=== PATIENT | female | born 1980 | race African-American/Black ===

== ENCOUNTER 2021-02-07 00:24 | Emergency (ER) | payer OTHER ==
[2021-02-07 01:05] VITALS: BP 141/87; PULSE 84; TEMP 98.3; BMI 36.6
[2021-02-07] MEDS ORDERED: LIDOCAINE VISCOUS 2% ORAL/TOP 15 ML UNIT-DOSE CUP MM ONE (01:38)
[2021-02-07] MEDS ORDERED: AMOX TR/POT CLAV 875MG/125MG TABLETS (FP) PO ONE (01:38)
[2021-02-07] MEDS ORDERED: AMOX TR/POT CLAV 875MG/125MG TABLETS (FP) ONE (01:49)
[2021-02-07] MEDS ORDERED: LIDOCAINE VISCOUS 2% ORAL/TOP 15 ML UNIT-DOSE CUP ONE (01:49)
== END 2021-02-07 02:07 | disposition home or self-care (01) ==
LOC: JER 00:24
DX: K02.9 Dental caries, unspecified (principal); K08.89 Other specified disorders of teeth and supporting structures
CPT/HCPCS: 99284-25

== ENCOUNTER 2021-03-14 17:32 | Emergency (ER) | payer OTHER ==
[2021-03-14 17:53] VITALS: BP 133/90; PULSE 109; TEMP 98; BMI 36.6
== END 2021-03-14 20:49 | disposition home or self-care (01) ==
LOC: JER 17:32
DX: O9A.213 Injury, poisoning and certain other consequences of external causes complicating pregnancy, third trimester (principal); S39.91XA Unspecified injury of abdomen, initial encounter; W50.0XXA Accidental hit or strike by another person, initial encounter; Z3A.14 14 weeks gestation of pregnancy
CPT/HCPCS: 76815; 99284-25

== ENCOUNTER 2021-08-07 16:02 | Emergency (ER) | payer OTHER ==
[2021-08-07 16:20] VITALS: BMI 40.9
[2021-08-07] MEDS ORDERED: BETAMET ACET/BETAMET NA PH 30 MG/5 ML VIAL IM ONE (19:00)
[2021-08-07 19:01] LABS: BASO % 0.6 % (0-2.0); EOS % 3.7 % (0-4.5); HEMATOCRIT 33.6 % (32.4-45.2); HEMOGLOBIN 10.5 GM/dL (10.7-15.3); LYMPH % 26.1 % (8-40); MCH 27.2 pg (25.7-33.7); MCHC 31.4 g/dl (32.0-36.0); MEAN CELL VOLUME 86.6 fl (80-96); MEAN PLT VOLUME 8.8 fl (7.5-11.1); MONO % 6.9 % (3.8-10.2); NEUT % 62.7 % (42.8-82.8); PLATELET COUNT 299 10^3/uL (134-434); RBC 3.88 M/mm3 (3.60-5.2); RDW 17.2 % (11.6-15.6); WHITE BLOOD COUNT 11.4 K/mm3 (4.0-10.0)
[2021-08-07 19:03] LABS: PH,URINE 6.5 (5.0-8.0); URINE APPEARANCE CLEAR; URINE BILIRUBIN NEGATIVE (NEGATIVE); URINE COLOR YELLOW; URINE GLUCOSE (UA) NEGATIVE (NEGATIVE); URINE KETONE NEGATIVE (NEGATIVE); URINE LEUK ESTERASE NEGATIVE (NEGATIVE); URINE NITRITE NEGATIVE (NEGATIVE); URINE PROTEIN NEGATIVE (NEGATIVE); URINE UROBILINOGEN 0.2 mg/dL (0.2-1.0)
[2021-08-07 19:12] LABS: ACTIVATED PTT 29.2 SECONDS (25.2-36.5); INR 0.92 (0.83-1.09); PROTHROMBIN TIME (PATIENT) 10.6 SEC (9.7-13.0)
[2021-08-07 19:13] LABS: ALBUMIN 2.4 g/dl (3.4-5.0); BLOOD UREA NITROGEN 7.2 mg/dL (7-18)
[2021-08-07 19:14] LABS: URIC ACID 3.8 mg/dL (2.6-7.2)
[2021-08-07 19:15] LABS: CREATININE 0.6 mg/dL (0.55-1.3)
[2021-08-07 19:17] LABS: BILIRUBIN,TOTAL 0.2 mg/dL (0.2-1); TOT PROT 6.6 g/dl (6.4-8.2)
[2021-08-07] MEDS ORDERED: BETAMET ACET/BETAMET NA PH 30 MG/5 ML VIAL ONE (19:35)
[2021-08-07 20:57] VITALS: BP 128/76; PULSE 86; TEMP 98.1
== END 2021-08-07 20:33 | disposition home or self-care (01) ==
LOC: JER 16:02
PROC: 3E023GC Introduction of Other Therapeutic Substance into Muscle, Percutaneous Approach (ICD-10-PCS; principal; 2021-08-07)
DX: O16.3 Unspecified maternal hypertension, third trimester (principal); Z3A.36 36 weeks gestation of pregnancy
CPT/HCPCS: 36415; 76819-TC; 80053; 81003; 82977; 83010; 83615; 83690; 84550; 85025; 85045; 85384; 85610; 85730; 86850; 86900; 86901; 93005; 93010; 99285-25

== ENCOUNTER 2021-08-13 00:18 | Emergency (ER) | payer OTHER ==
[2021-08-13 00:43] VITALS: BMI 40.9
[2021-08-13] MEDS ORDERED: MAG HYDROX/AL HYDROX/SIMETH 30 ML UNIT-DOSE CUP PO ONE (01:45)
[2021-08-13 01:55] LABS: BASO % 0.4 % (0-2.0); EOS % 2.7 % (0-4.5); HEMATOCRIT 34.2 % (32.4-45.2); HEMOGLOBIN 11.1 GM/dL (10.7-15.3); LYMPH % 22.2 % (8-40); MCH 27.8 pg (25.7-33.7); MCHC 32.6 g/dl (32.0-36.0); MEAN CELL VOLUME 85.5 fl (80-96); MEAN PLT VOLUME 8.4 fl (7.5-11.1); MONO % 7.4 % (3.8-10.2); NEUT % 67.3 % (42.8-82.8); PLATELET COUNT 293 10^3/uL (134-434); RDW 16.9 % (11.6-15.6); WHITE BLOOD COUNT 12.7 K/mm3 (4.0-10.0)
[2021-08-13 02:06] LABS: RETICULOCYTES 2.66 % (0.5-1.5)
[2021-08-13 02:11] VITALS: BP 158/91; PULSE 88; TEMP 97.7
[2021-08-13 02:12] LABS: INR 0.92 (0.83-1.09); PROTHROMBIN TIME (PATIENT) 10.6 SEC (9.7-13.0)
[2021-08-13 02:14] LABS: ACTIVATED PTT 26.1 SECONDS (25.2-36.5)
[2021-08-13 02:17] LABS: ALBUMIN 2.5 g/dl (3.4-5.0); BLOOD UREA NITROGEN 8.2 mg/dL (7-18); CALCIUM 9.2 mg/dL (8.5-10.1)
[2021-08-13 02:20] LABS: CREATININE 0.6 mg/dL (0.55-1.3)
[2021-08-13 02:22] LABS: BILIRUBIN,TOTAL 0.6 mg/dL (0.2-1); TOT PROT 6.6 g/dl (6.4-8.2)
[2021-08-13 02:31] LABS: EPI CELLS >36 /uL (0-25.1); HYALINE CASTS 3 /uL (0-3.1); PH,URINE 7.5 (5.0-8.0); URINE APPEARANCE CLOUDY; URINE BACTERIA 1216 /uL (0-1359); URINE BILIRUBIN NEGATIVE (NEGATIVE); URINE COLOR YELLOW; URINE GLUCOSE (UA) NEGATIVE (NEGATIVE); URINE KETONE NEGATIVE (NEGATIVE); URINE LEUK ESTERASE TRACE (NEGATIVE); URINE NITRITE NEGATIVE (NEGATIVE); URINE PROTEIN NEGATIVE (NEGATIVE); URINE RBC 3 /uL (0-23.9); URINE UROBILINOGEN 0.2 mg/dL (0.2-1.0); URINE WBC 30 /uL (0-25.8)
== END 2021-08-13 06:05 | disposition home or self-care (01) ==
LOC: JER 00:18
DX: O26.893 Other specified pregnancy related conditions, third trimester (principal); R06.02 Shortness of breath; R10.11 Right upper quadrant pain; Z3A.37 37 weeks gestation of pregnancy
CPT/HCPCS: 36415; 76815; 80053; 81003; 83010; 83690; 84550; 85025; 85045; 85610; 85730; 87086; 93308; 99284-25; C9803-CS; U0003; U0005

== ENCOUNTER 2021-08-21 06:15 | Inpatient (IN) | payer OTHER ==
[2021-08-21] MEDS: ELECTROLYTE-148 SOLN 1,000 ML IV SCH (06:25)
[2021-08-21 06:54] VITALS: BMI 39.6
[2021-08-21] MEDS ORDERED: CITRIC ACID/SODIUM CITRATE 30 ML UNIT-DOSE CUP PO ONE (06:55)
[2021-08-21] MEDS ORDERED: OXYTOCIN 20 UNITS in 0.9% NS 20 UNIT/1,000 ML INFUS.BAG IV ONE (07:54)
[2021-08-21] MEDS ORDERED: morphine SULFATE/PF 1 MG/2 ML (2cc Syringe - QUVA) ONE (07:55)
[2021-08-21] MEDS ORDERED: ONDANSETRON 4 MG/2 ML VIAL ONE (09:21)
[2021-08-21] MEDS ORDERED: ceFAZolin SODIUM 1 GM VIAL ONE (09:21)
[2021-08-21] MEDS ORDERED: KETOROLAC TROMETHAMINE 30 MG/1 ML VIAL ONE (09:21)
[2021-08-21] MEDS ORDERED: OXYTOCIN 10 UNITS/ML VIAL ONE (09:21)
[2021-08-21 09:33] LABS: CORD HCO3 27.6 mmHg (20-29); CORD PCO2 51.9 mmHg (30-78); CORD pH 7.344 (7.14-7.44)
[2021-08-21] MEDS ORDERED: IBUPROFEN 600 MG TABLET (FP) PO PRN (09:35)
[2021-08-21] MEDS ORDERED: METHYLERGONOVINE MALEATE 0.2 MG/1 ML AMP IM PRN (09:35)
[2021-08-21] MEDS ORDERED: ACETAMINOPHEN 325 MG TABLET (FP) PO PRN (09:35)
[2021-08-21 09:36] LABS: CORD HCO3 28.3 mmHg (20-29); CORD PCO2 59.1 mmHg (30-78); CORD pH 7.298 (7.14-7.44)
[2021-08-21] MEDS ORDERED: morphine SULFATE/PF 1 MG/2 ML (2cc Syringe - QUVA) EP ONE (09:40)
[2021-08-21] MEDS ORDERED: ONDANSETRON 4 MG/2 ML VIAL IVPUSH PRN (09:40)
[2021-08-21] MEDS ORDERED: IBUPROFEN 800 MG/8 ML IJ IVPB ONE (10:06)
[2021-08-21] MEDS: IBUPROFEN 800 MG/8 ML IJ IVPB PRN (10:20)
[2021-08-21] MEDS: INSULIN SLIDING SCALE (NOVOLOG) 1 VIAL SQ SCH ×3 (11:15→22:17)
[2021-08-21] MEDS: OXYTOCIN 20 UNITS in 0.9% NS 20 UNIT/1,000 ML INFUS.BAG IV SCH (17:00)
[2021-08-21] MEDS ORDERED: oxyCODONE HCL 5 MG TABLET PO PRN ×2 (21:35)
[2021-08-22] MEDS: IBUPROFEN 800 MG/8 ML IJ IVPB PRN (04:51)
[2021-08-22 06:40] LABS: BASO % 0.6 % (0-2.0); EOS % 2.6 % (0-4.5); HEMATOCRIT 23.4 % (32.4-45.2); HEMOGLOBIN 7.6 GM/dL (10.7-15.3); LYMPH % 25.6 % (8-40); MCH 28.2 pg (25.7-33.7); MCHC 32.4 g/dl (32.0-36.0); MEAN CELL VOLUME 87.1 fl (80-96); MEAN PLT VOLUME 8.6 fl (7.5-11.1); MONO % 8.2 % (3.8-10.2); PLATELET COUNT 254 10^3/uL (134-434); RBC 2.68 M/mm3 (3.60-5.2); RDW 16.3 % (11.6-15.6); WHITE BLOOD COUNT 12.5 K/mm3 (4.0-10.0)
[2021-08-22] MEDS: INSULIN SLIDING SCALE (NOVOLOG) 1 VIAL SQ SCH ×4 (06:45→22:29)
[2021-08-22] MEDS ORDERED: BISACODYL 10 MG SUPP.RECT RC PRN (09:35)
[2021-08-22] MEDS: ENOXAPARIN NA (PORCINE) 40 MG/0.4 ML DISP.SYRIN SQ SCH (11:40)
[2021-08-22] MEDS: IBUPROFEN 600 MG TABLET (FP) PO PRN ×2 (12:01→22:39)
[2021-08-22] MEDS: ELECTROLYTE-148 SOLN 1,000 ML IV SCH (20:11)
[2021-08-22] MEDS: OXYTOCIN 20 UNITS in 0.9% NS 20 UNIT/1,000 ML INFUS.BAG IV SCH (20:11)
[2021-08-22] MEDS: SIMETHICONE 80 MG TAB.CHEW (FP) PO PRN (22:39)
[2021-08-23] MEDS: IBUPROFEN 600 MG TABLET (FP) PO PRN ×3 (02:10→21:20)
[2021-08-23] MEDS: SIMETHICONE 80 MG TAB.CHEW (FP) PO PRN ×2 (02:10→21:20)
[2021-08-23] MEDS: INSULIN SLIDING SCALE (NOVOLOG) 1 VIAL SQ SCH ×4 (06:12→21:21)
[2021-08-23 06:55] LABS: BASO % 0.5 % (0-2.0); EOS % 3.5 % (0-4.5); HEMATOCRIT 28.4 % (32.4-45.2); HEMOGLOBIN 9.4 GM/dL (10.7-15.3); MCHC 33.2 g/dl (32.0-36.0); MEAN CELL VOLUME 87.4 fl (80-96); MEAN PLT VOLUME 8.2 fl (7.5-11.1); MONO % 7.5 % (3.8-10.2); NEUT % 71.5 % (42.8-82.8); PLATELET COUNT 254 10^3/uL (134-434); RBC 3.25 M/mm3 (3.60-5.2); WHITE BLOOD COUNT 16.2 K/mm3 (4.0-10.0)
[2021-08-23] MEDS: ENOXAPARIN NA (PORCINE) 40 MG/0.4 ML DISP.SYRIN SQ SCH (09:33)
[2021-08-23] MEDS: LABETALOL HCL 100 MG TABLET (FP) PO SCH ×2 (09:33→21:21)
[2021-08-24] MEDS ORDERED: FAMOTIDINE 20 MG TABLET PO ONE (03:15)
[2021-08-24] MEDS ORDERED: MAG HYDROX/AL HYDROX/SIMETH 30 ML UNIT-DOSE CUP PO PRN (05:28)
[2021-08-24] MEDS: INSULIN SLIDING SCALE (NOVOLOG) 1 VIAL SQ SCH ×3 (06:20→17:08)
[2021-08-24 07:55] LABS: BASO % 0.8 % (0-2.0); EOS % 4.5 % (0-4.5); HEMATOCRIT 26.1 % (32.4-45.2); HEMOGLOBIN 8.6 GM/dL (10.7-15.3); LYMPH % 21.3 % (8-40); MCH 28.9 pg (25.7-33.7); MEAN CELL VOLUME 87.6 fl (80-96); MEAN PLT VOLUME 8.2 fl (7.5-11.1); MONO % 6.3 % (3.8-10.2); NEUT % 67.1 % (42.8-82.8); PLATELET COUNT 267 10^3/uL (134-434); RBC 2.98 M/mm3 (3.60-5.2); RDW 16.7 % (11.6-15.6); WHITE BLOOD COUNT 15.8 K/mm3 (4.0-10.0)
[2021-08-24] MEDS: ENOXAPARIN NA (PORCINE) 40 MG/0.4 ML DISP.SYRIN SQ SCH (09:15)
[2021-08-24] MEDS: LABETALOL HCL 100 MG TABLET (FP) PO SCH (09:15)
[2021-08-24 10:49] VITALS: BP 133/78; PULSE 96; TEMP 98.3
== END 2021-08-24 18:10 | disposition home or self-care (01) | DRG 787 ==
LOC: JLDR 06:15 → J3W 11:08
PROVIDERS: ADMIT Obstetrics & Gynecology; ATTEND Obstetrics & Gynecology
PROC: 10D00Z1 Extraction of Products of Conception, Low, Open Approach (ICD-10-PCS; principal; 2021-08-21)
DX: O32.2XX0 Maternal care for transverse and oblique lie, not applicable or unspecified (principal); O10.92 Unspecified pre-existing hypertension complicating childbirth; O24.424 Gestational diabetes mellitus in childbirth, insulin controlled; O69.81X0 Labor and delivery complicated by cord around neck, without compression, not applicable or unspecified; O69.89X0 Labor and delivery complicated by other cord complications, not applicable or unspecified; O34.13 Maternal care for benign tumor of corpus uteri, third trimester; O40.3XX0 Polyhydramnios, third trimester, not applicable or unspecified; O99.214 Obesity complicating childbirth; E66.9 Obesity, unspecified; R07.9 Chest pain, unspecified; R10.13 Epigastric pain; Z3A.38 38 weeks gestation of pregnancy; Z37.0 Single live birth
CPT/HCPCS: 36415; 36430; 36600; 71275-TC; 82803; 82962; 84484; 85025; 86850; 86900; 86901; 86922; 88307-TC; 93005; 93010; P9058; Q9967

== ENCOUNTER 2021-08-27 20:36 | Observation (INO) | payer OTHER ==
[2021-08-27 21:16] VITALS: TEMP 97.9; BMI 40.9
[2021-08-27] MEDS ORDERED: ACETAMINOPHEN 1000 MG/100 ML BAG IVPB ONE (22:08)
[2021-08-27] MEDS ORDERED: ACETAMINOPHEN INJECTION 100 ML IVPB ONE (22:46)
[2021-08-27 23:07] LABS: EOS % 5.7 % (0-4.5); HEMATOCRIT 30.4 % (32.4-45.2); HEMOGLOBIN 10.1 GM/dL (10.7-15.3); LYMPH % 17.3 % (8-40); MCHC 33.1 g/dl (32.0-36.0); MEAN CELL VOLUME 87.6 fl (80-96); MEAN PLT VOLUME 7.2 fl (7.5-11.1); MONO % 6.7 % (3.8-10.2); NEUT % 69.3 % (42.8-82.8); PLATELET COUNT 460 10^3/uL (134-434); RBC 3.47 M/mm3 (3.60-5.2); RDW 16.1 % (11.6-15.6); WHITE BLOOD COUNT 13.2 K/mm3 (4.0-10.0)
[2021-08-27 23:11] LABS: EPI CELLS 14 /uL (0-25.1); HYALINE CASTS 0 /uL (0-3.1); URINE APPEARANCE CLEAR; URINE BACTERIA 96 /uL (0-1359); URINE BILIRUBIN NEGATIVE (NEGATIVE); URINE COLOR YELLOW; URINE GLUCOSE (UA) NEGATIVE (NEGATIVE); URINE KETONE NEGATIVE (NEGATIVE); URINE LEUK ESTERASE TRACE (NEGATIVE); URINE NITRITE NEGATIVE (NEGATIVE); URINE PROTEIN NEGATIVE (NEGATIVE); URINE RBC 54 /uL (0-23.9); URINE WBC 39 /uL (0-25.8)
[2021-08-27 23:29] LABS: CALCIUM 8.9 mg/dL (8.5-10.1)
[2021-08-27 23:30] LABS: ALBUMIN 2.5 g/dl (3.4-5.0); BLOOD UREA NITROGEN 19.5 mg/dL (7-18)
[2021-08-27 23:33] LABS: CREATININE 0.8 mg/dL (0.55-1.3)
[2021-08-27 23:34] LABS: BILIRUBIN,TOTAL 0.4 mg/dL (0.2-1)
[2021-08-27 23:35] LABS: TOT PROT 6.7 g/dl (6.4-8.2)
[2021-08-28] MEDS ORDERED: SODIUM CHLORIDE 1,000 ML IV STA (03:12)
[2021-08-28] MEDS ORDERED: IBUPROFEN 400 MG TABLET (FP) PO ONE ×2 (05:24→06:00)
[2021-08-28] MEDS ORDERED: ACETAMINOPHEN 325 MG TABLET (FP) PO ONE (06:00)
[2021-08-28] MEDS ORDERED: ACETAMINOPHEN 325 MG TABLET (FP) PO PRN (06:00)
[2021-08-28 06:17] VITALS: BP 130/72; PULSE 87
== END 2021-08-28 06:25 | disposition home or self-care (01) ==
LOC: JER 20:36 → JERBED 08-28 02:00
PROVIDERS: ADMIT Hospitalist; ATTEND Hospitalist
PROC: 3E033NZ Introduction of Analgesics, Hypnotics, Sedatives into Peripheral Vein, Percutaneous Approach (ICD-10-PCS; principal; 2021-08-28)
PROC: 3E0337Z Introduction of Electrolytic and Water Balance Substance into Peripheral Vein, Percutaneous Approach (ICD-10-PCS; 2021-08-28)
DX: E11.9 Type 2 diabetes mellitus without complications (principal); I10 Essential (primary) hypertension; J45.909 Unspecified asthma, uncomplicated; E86.0 Dehydration; E66.01 Morbid (severe) obesity due to excess calories; Z68.41 Body mass index [BMI] 40.0-44.9, adult; Z86.32 Personal history of gestational diabetes; M94.0 Chondrocostal junction syndrome [Tietze]; Z86.79 Personal history of other diseases of the circulatory system; D72.829 Elevated white blood cell count, unspecified; Z91.010 Allergy to peanuts; Z91.013 Allergy to seafood
CPT/HCPCS: 36415; 71046-TC-FY; 80053; 81003; 84484; 85025; 93005; 93010; 96361; 96374; 99285-25; C9803-CS; G0378; U0003; U0005